=== PATIENT | male | born 1960 | race Caucasian/White ===

== ENCOUNTER 2016-05-13 09:37 | Outpatient (CLI) ==
[2015-09-07 08:10] VITALS: BMI 23.0
[2016-05-13 10:14] LABS: ALBUMIN 3.5 g/dL (3.4-5.0); ALBUMIN/GLOBULIN RATIO 0.71; ANION GAP 14.2; BILIRUBIN,DIRECT 0.39 mg/dL (0.00-0.30); BILIRUBIN,TOTAL 0.65 mg/dL (0.00-1.20); BUN/CREATININE RATIO 6.94; CALCIUM 9.6 mg/dL (8.2-10.2); CREATININE 0.72 mg/dL (0.60-1.10); PHOSPHORUS 3.1 mg/dL (2.5-4.9); POTASSIUM 4.2 mmol/L (3.5-5.1); TOTAL PROTEIN 8.4 g/dL (6.4-8.2)
== END 2016-05-13 09:38 | disposition home or self-care (01) ==
LOC: LAB 09:37
PROVIDERS: ATTEND Pain Medicine Interventional Pain Medicine
DX: Z51.81 Encounter for therapeutic drug level monitoring (principal); Z79.891 Long term (current) use of opiate analgesic; F19.20 Other psychoactive substance dependence, uncomplicated
CPT/HCPCS: 36415; 80053; 82248; 84100

== ENCOUNTER 2016-05-30 10:28 | Outpatient (CLI) ==
[2015-09-07 08:10] VITALS: BMI 23.0
[2016-05-30 11:24] LABS: BASOPHILS # (AUTO) 0.1 K/uL (0-0.2); BASOPHILS % (AUTO) 1.5 % (0.0-3.0); EOSINOPHILS # (AUTO) 0.3 K/ul (0.0-0.7); EOSINOPHILS % (AUTO) 3.2 % (0.0-7.0); HEMATOCRIT 40.5 % (42.0-52.0); HEMOGLOBIN 14.2 g/dl (14.0-18.0); IMMATURE GRANULOCYTE % (AUTO) 0.4 % (0.0-5.0); LYMPHOCYTES # (AUTO) 2.6 K/uL (0.60-3.4); LYMPHOCYTES % (AUTO) 31.4 (10.0-50.0); MEAN CORPUSCULAR HEMOGLOBIN 34.3 pg (27.0-31.0); MEAN CORPUSCULAR HGB CONC 35.1 (31.8-35.4); MEAN CORPUSCULAR VOLUME 97.8 fl (80.0-94.0); MONOCYTES # (AUTO) 0.7 K/uL (0.4-2.0); MONOCYTES % (AUTO) 8.1 (0-10); NEUTROPHILS # (AUTO) 4.5 K/ul (2.0-6.9); NEUTROPHILS % (AUTO) 55.4; PLATELET COUNT 165 10^3/uL (140-440); RED BLOOD COUNT 4.14 10^6/ul (4.70-6.10); WHITE BLOOD COUNT 8.18 K/ul (4.2-10.2)
[2016-05-30 12:03] LABS: ALBUMIN 3.5 g/dL (3.4-5.0); ALBUMIN/GLOBULIN RATIO 0.71; ANION GAP 16.3; BILIRUBIN,TOTAL 0.9 mg/dL (0.00-1.20); BUN/CREATININE RATIO 5.26; CALCIUM 9.3 mg/dL (8.2-10.2); CHOL/HDL RATIO 2.7 (4.5-6.4); CREATININE 0.76 mg/dL (0.60-1.10); POTASSIUM 4.3 mmol/L (3.5-5.1); TOTAL PROTEIN 8.4 g/dL (6.4-8.2)
== END 2016-05-30 10:29 | disposition home or self-care (01) ==
LOC: LAB 10:28
PROVIDERS: ATTEND Nurse Practitioner Family
DX: E78.5 Hyperlipidemia, unspecified (principal); F10.10 Alcohol abuse, uncomplicated; I10 Essential (primary) hypertension; Z12.5 Encounter for screening for malignant neoplasm of prostate
CPT/HCPCS: 36415; 80053; 80061; 82306; 84443; 85025

== ENCOUNTER 2016-09-19 11:48 | Outpatient (CLI) ==
[2015-09-07 08:10] VITALS: BMI 23.0
[2016-09-19 13:07] LABS: BASOPHILS # (AUTO) 0.1 K/uL (0-0.2); EOSINOPHILS # (AUTO) 0.1 K/ul (0.0-0.7); EOSINOPHILS % (AUTO) 1.3 % (0.0-7.0); HEMATOCRIT 38.8 % (42.0-52.0); HEMOGLOBIN 13.7 g/dl (14.0-18.0); IMMATURE GRANULOCYTE % (AUTO) 0.4 % (0.0-5.0); LYMPHOCYTES # (AUTO) 1.1 K/uL (0.60-3.4); LYMPHOCYTES % (AUTO) 16.4 (10.0-50.0); MEAN CORPUSCULAR HEMOGLOBIN 34.5 pg (27.0-31.0); MEAN CORPUSCULAR HGB CONC 35.3 (31.8-35.4); MEAN CORPUSCULAR VOLUME 97.7 fl (80.0-94.0); MONOCYTES # (AUTO) 1.1 K/uL (0.4-2.0); MONOCYTES % (AUTO) 16.3 (0-10); NEUTROPHILS # (AUTO) 4.4 K/ul (2.0-6.9); NEUTROPHILS % (AUTO) 64.6; PLATELET COUNT 158 10^3/uL (140-440); RED BLOOD COUNT 3.97 10^6/ul (4.70-6.10); WHITE BLOOD COUNT 6.88 K/ul (4.2-10.2)
[2016-09-19 13:21] LABS: ALBUMIN 3.9 g/dL (3.4-5.0); ALBUMIN/GLOBULIN RATIO 0.81; ANION GAP 17.6; BILIRUBIN,TOTAL 0.79 mg/dL (0.00-1.20); BUN/CREATININE RATIO 6.94; CHOL/HDL RATIO 2.4 (4.5-6.4); CREATININE 0.72 mg/dL (0.60-1.10); POTASSIUM 4.6 mmol/L (3.5-5.1); TOTAL PROTEIN 8.7 g/dL (6.4-8.2)
== END 2016-09-19 11:49 | disposition home or self-care (01) ==
LOC: LAB 11:48
PROVIDERS: ATTEND Nurse Practitioner Family
DX: E78.5 Hyperlipidemia, unspecified (principal); I10 Essential (primary) hypertension; Z11.59 Encounter for screening for other viral diseases
CPT/HCPCS: 36415; 80053; 80061; 80074; 85025

== ENCOUNTER 2016-09-24 16:37 | Outpatient (CLI) ==
[2015-09-07 08:10] VITALS: BMI 23.0
[2016-09-24 18:03] LABS: FERRITIN 524.85 ng/mL (21.81-274.66)
== END 2016-09-24 16:38 | disposition home or self-care (01) ==
LOC: LAB 16:37
PROVIDERS: ATTEND Nurse Practitioner Family
DX: E78.5 Hyperlipidemia, unspecified (principal); D64.9 Anemia, unspecified; F10.10 Alcohol abuse, uncomplicated; I10 Essential (primary) hypertension
CPT/HCPCS: 36415; 82607; 82728; 83540; 83550; 84466

== ENCOUNTER → 2016-10-07 | Outpatient (POV) ==
[2015-09-07 08:10] VITALS: BMI 23.0
== END ==
LOC: OUTPT 00:01
PROVIDERS: ATTEND Otolaryngology
DX: H93.13 Tinnitus, bilateral (principal)
CPT/HCPCS: 92557; 92567

== ENCOUNTER 2016-10-09 08:20 | Day surgery (SDC) ==
[2015-09-07 08:10] VITALS: BMI 23.0
[2016-10-09] MEDS ORDERED: LIDOCAINE 1%-EPI 1:100,000 10 ML (SURGERY) INJ ONE (10:17)
[2016-10-09] MEDS ORDERED: NEOSPORIN OINT 0.9 GM PACKET TP ONE (10:35)
[2016-10-09 11:22] VITALS: BP 126/69; TEMP 98.5
--- NOTE | 2016-10-14 10:54 | OP ---
DATE OF OPERATION: 10/09/16 65 year old male was brought to the operating room for excision of lesion of the posterior of the left arm. The lesion began as an abrasion against a door. It had not healed well. He was seen on consultation. I felt that the problem would probably not heal and probably excise for microscopic diagnosis. The patient was agreeable and he was advised about the possibility of infection and wound dehiscences and also advised that if there is any malignancy that it would require further surgery and if the surgery is extensive that I would not be able to perform the procedure for him and he will be referred to another facility. PREOPERATIVE DIAGNOSIS: SKIN LESION MID FOREARM, LEFT OPERATION: TRANSVERSE ELLIPTICAL EXCISION POSTOPERATIVE DIAGNOSIS: SAME. PROCEDURE: The patient in supine posture was then prepped and draped for surgery. The wound was measured. The area was then anesthetized with 1% Xylocaine. A transverse elliptical incision was made and this was dissected sharply until it was completely removed. Pressure was applied to the wound after removal of the lesion. The edges were then approximated using a 5-0 Vicryl and 5-0 Prolene. Neosporin ointment, plus dressing was applied. The patient tolerated the procedure well and was instructed to see me in one week and before if he has any problems. He was also instructed to elevate his arm above his head or his heart for the next three days. He was further instructed to see me if he has any problems or concerns. TAWANA
== END 2016-10-09 11:32 | disposition home or self-care (01) ==
LOC: SURG 08:20
PROVIDERS: ATTEND General Practice
DX: L72.0 Epidermal cyst (principal); L28.0 Lichen simplex chronicus; S50.812A Abrasion of left forearm, initial encounter; W22.8XXA Striking against or struck by other objects, initial encounter
CPT/HCPCS: 11403

== ENCOUNTER 2017-07-27 14:53 | Outpatient (CLI) ==
[2015-09-07 08:10] VITALS: BMI 23.0
== END 2017-07-27 14:54 | disposition home or self-care (01) ==
LOC: RHC-LAB 14:53
PROVIDERS: ATTEND Emergency Medicine
DX: L30.9 Dermatitis, unspecified (principal); F10.10 Alcohol abuse, uncomplicated; E78.5 Hyperlipidemia, unspecified; I10 Essential (primary) hypertension
CPT/HCPCS: 36415; 80053; 82140; 85025; 85610

== ENCOUNTER 2017-08-03 11:29 | Outpatient (CLI) ==
[2015-09-07 08:10] VITALS: BMI 23.0
== END 2017-08-03 11:30 | disposition home or self-care (01) ==
LOC: LAB 11:29
PROVIDERS: ATTEND Emergency Medicine
DX: F10.10 Alcohol abuse, uncomplicated (principal)
CPT/HCPCS: 36415; 82140

== ENCOUNTER 2017-08-07 08:21 | Outpatient (CLI) ==
[2015-09-07 08:10] VITALS: BMI 23.0
--- NOTE | 2017-08-07 09:39 | US ---
Exam: Lorenzo-scale and color ultrasonographic evaluation of the abdomen. Limited abdominal ultrasound Comparison: 07/20/2015. Reason for exam: Alcohol abuse. FINDINGS: The liver measures approximately 16.1 cm in length with a fatty appearing echotexture. There is no obvious ductal dilatation or perihepatic free fluid although evaluation is limited by ove rlying bowel gas. There is normal antegrade portal venous flow. The gallbladder wall measures 0.24 cm which is within normal limits. No intraluminal sludge, stone o r polyp is seen. The common bile duct measures 0.46 cm which is within normal limits. No evidence of intraluminal sto ne or polyp is seen. The pancreas was not well seen secondary to overlying bowel gas. The right kidney measures approximately 10.3 x 4.9 x 4.0 cm without obvious hydronephrosis and nephro lithiasis. Impression: Similar appearing hepatic steatosis. No acute ultrasonographic imaging findings are seen in the righ t upper quadrant
== END 2017-08-07 08:22 | disposition home or self-care (01) ==
LOC: RAD 08:21
PROVIDERS: ATTEND Emergency Medicine
DX: F10.10 Alcohol abuse, uncomplicated (principal); R74.8 Abnormal levels of other serum enzymes

== ENCOUNTER 2017-08-12 08:17 | Observation (INO) ==
--- NOTE | 2017-08-12 08:40 | ED.PDOC ---
General ED Provider: Dr. VENUS TOLENTINO Chief Complaint: Allergic Reaction Stated Complaint: allergic reaction Time Seen by Physician: 08:20 ( no shortness of breath) Mode of Arrival: Walk-In Information Source: Patient Exam Limitations: No limitations [facility] Nursing and Triage Documentation Reviewed and Agree: Yes Reviewed sepsis parameters & appropriate labs ordered?: Yes System Inflammatory Response Syndrome: Not Applicable Sepsis Protocol: For patient's 13 years and over: Temp is 96.8 and below OR 101 and greater Pulse >90 BPM Resp >20/minute Acutely Altered Mental Status Are patient's symptoms suggestive of a new infection, such as: -Pneumonia -Skin, Soft Tissue -Endocarditis -UTI -Bone, Joint Infection -Implantable Device -Acute Abdominal Infection -Wound Infection -Meningitis -Blood Stream Catheter Infection -Unknown System Inflammatory Response Syndrome: Not Applicable EENT Complaint Exam - Dental/Oral Complaint/Exam Mechanism of Injury: No known trauma Onset/Duration: 1 day Symptoms Are: Still present Initial Severity: Moderate Current Severity: Moderate Aggravating: Reports: None Alleviating: Reports: None Associated Signs and Symptoms: Reports: Swelling (upper lower lips and hand ) Cardiac Risk Factors: Reports: Hypertension (hisACEI DOSE WAS INCREASED ) Dental/Oral Surgical History: Reports: None Facial Swelling Present: Yes (CAN NOT OPEN MOUTH FULLY) Bleeding Present: No Oropharynx Findings: Absent: Clots, Active bleeding Septal Hematoma: No Foreign Body Present: No Dysphagia Present: No Drooling Present: No Asymmetrical Tonsillar Swelling Present: No Uvula Midline: No (UNABLE SEE ) Lyla-tonsillar Fluctuence: No Trismus Present: No Palatal Petechiae Present: No Scarlatinaform Rash Present: No Differential Diagnoses: Other (ANGIOEDEMA) Review of Systems - Review Of Systems Constitutional: Reports: No symptoms Eyes: Reports: No symptoms Ears, Nose, Mouth, Throat: Reports: Mouth swelling Respiratory: Reports: No symptoms Cardiac: Reports: No symptoms GI: Reports: No symptoms : Reports: No symptoms Musculoskeletal: Reports: No symptoms Skin: Reports: No symptoms Neurological: Reports: No symptoms Endocrine: Reports: No symptoms Hematologic/Lymphatic: Reports: No symptoms All Other Systems: Reviewed and Negative Past Medical History - Past Medical History Previously Healthy: Yes Endocrine: Reports: None Cardiovascular: Reports: None Respiratory: Reports: COPD, Asthma Hematological: Reports: None Gastrointestinal: Reports: None Genitourinary: Reports: None Neuro/Psych: Reports: Anxiety, Depression Musculoskeletal: Reports: Arthritis Cancer: Reports: None - Surgical History General Surgical History: Reports: None - Family History Family History: Reports: Unknown - Social History Smoking Status: Never smoker Hx Substance Use: No Alcohol Screening: Occasionally Physical Exam - Physical Exam Appearance: Well-appearing, No pain distress, Well-nourished Eyes: MARIO, EOMI, Conjunctiva clear ENT: Oropharynx normal (BUT DUE TO EDEMA CAN NOT OPEN MOTH FULLY SEE PHOTOS) Respiratory: Airway patent, Breath sounds clear, Breath sounds equal, Respirations nonlabored Cardiovascular: RRR, Pulses normal, No rub, No murmur GI/: Soft, Nontender, No masses, Bowel sounds normal, No Organomegaly Musculoskeletal: Normal strength, ROM intact, No edema, No calf tenderness Skin: Warm, Dry, Normal color Neurological: Sensation intact, Motor intact, Reflexes intact, Cranial nerves intact, Alert, Oriented Psychiatric: Affect appropriate, Mood appropriate Physician Notification - Case Discussed Physician Notified: PMD Time of Notification: 08:41 Critical Care Note - Critical Care Note Total Time (mins): 0 Course - Course Vital Signs: Temp Pulse Resp BP Pulse Ox 08/12/17 08:18 98.5 F 96 H 20 149/94 H 95 Departure - Departure Time of Disposition: 08:42 Disposition: PLACED OBSERVATION Discharge Problem: Angio-edema Qualifiers: Encounter type: initial encounter Qualified Code(s): T78.3XXA - Angioneurotic edema, initial encounter Instructions: Angioedema (ED) Condition: Good Pt referred to PMD for follow-up: Yes IPMP verified?: No Additional Instructions: Please call your Family Physician as soon as possible to schedule a follow-up appointment. Allergies/Adverse Reactions: Allergies tizanidine HCl [From Zanaflex] Allergy (Severe, Verified 08/12/17 08:24) dizzy,saw black circles shellfish derived Allergy (Intermediate, Verified 08/12/17 08:24) [place] Shellfish codeine Adverse Reaction (Verified 08/12/17 08:24) mold Allergy (Severe, Uncoded 09/07/15 08:14) sneeze , prboblems with asthma dust Allergy (Mild, Uncoded 09/07/15 08:14) sneeze, increases asthma attacks mildew Allergy (Mild, Uncoded 09/07/15 08:14) sneeze, asthma trees Allergy (Mild, Uncoded 09/07/15 08:14) sneeze, asthma Home Medications: Ambulatory Orders Oxycodone-Acetaminophen 5-325 [Percocet 5-325] 1 each PO TID 05/30/16 Methylphenidate HCl [Ritalin] 10 mg PO BID 10/09/16 Disposition Discussed With: Patient
[2017-08-12] MEDS ORDERED: BENADRYL PO STA (08:43)
[2017-08-12] MEDS ORDERED: SOLU-MEDROL 125 MG IVP STA (08:44)
[2017-08-12] MEDS ORDERED: LIBRIUM PO PRN (08:51)
[2017-08-12] MEDS ORDERED: SODIUM CHLORIDE 1,000 ML IV SCH (09:00)
[2017-08-12] MEDS ORDERED: INFUVITE ADULT IV ONE ×2 (10:44→23:11)
[2017-08-12] MEDS: THIAMINE IVP SCH (10:53)
[2017-08-12] MEDS: INFUVITE ADULT 10 ML in SODIUM CHLORIDE 1,000 ML IV SCH ×2 (10:53→23:18)
[2017-08-12 11:26] VITALS: BMI 23.4
[2017-08-12] MEDS: SOLU-MEDROL 125 MG IVP SCH ×2 (14:35→20:41)
[2017-08-12] MEDS ORDERED: PROAIR HFA IH PRN (15:44)
[2017-08-12] MEDS: SYMBICORT 160-4.5 MCG INHALER IH SCH (20:44)
[2017-08-12] MEDS: PERCOCET 5-325 PO SCH (20:44)
[2017-08-12] MEDS: NON-FORMULARY MEDICATION (Methylphenidate Hcl [Ritalin] 20 MG) PO SCH (20:45)
[2017-08-13] MEDS: SOLU-MEDROL 125 MG IVP SCH (04:10)
[2017-08-13] MEDS: SYMBICORT 160-4.5 MCG INHALER IH SCH ×2 (08:17→21:39)
[2017-08-13] MEDS: PERCOCET 5-325 PO SCH ×3 (08:17→21:39)
[2017-08-13] MEDS: SPIRIVA IH SCH (08:17)
[2017-08-13] MEDS: NON-FORMULARY MEDICATION (Methylphenidate Hcl [Ritalin] 20 MG) PO SCH ×2 (08:19→21:40)
[2017-08-13] MEDS: THIAMINE IVP SCH (08:52)
[2017-08-13] MEDS ORDERED: ZESTRIL PO SCH (09:00)
[2017-08-13] MEDS ORDERED: LACTULOSE 10 GM PO SCH (09:30)
[2017-08-13] MEDS: COZAAR PO SCH ×2 (09:41→21:39)
[2017-08-13] MEDS: MINOCYCLINE HCL PO SCH ×2 (09:42→21:39)
[2017-08-13] MEDS: PREDNISONE PO SCH ×2 (09:42→16:58)
[2017-08-13] MEDS ORDERED: LACTULOSE PO SCH (10:00)
[2017-08-13] MEDS ORDERED: INFUVITE ADULT IV ONE ×2 (11:13→23:48)
[2017-08-13] MEDS: INFUVITE ADULT 10 ML in SODIUM CHLORIDE 1,000 ML IV SCH (11:20)
[2017-08-14] MEDS: INFUVITE ADULT 10 ML in SODIUM CHLORIDE 1,000 ML IV SCH (00:23)
[2017-08-14 06:07] VITALS: BP 148/85; TEMP 97.5
[2017-08-14] MEDS: SPIRIVA IH SCH (08:40)
[2017-08-14] MEDS: MINOCYCLINE HCL PO SCH (08:40)
[2017-08-14] MEDS: SYMBICORT 160-4.5 MCG INHALER IH SCH (08:40)
[2017-08-14] MEDS: COZAAR PO SCH (08:41)
[2017-08-14] MEDS: NON-FORMULARY MEDICATION (Methylphenidate Hcl [Ritalin] 20 MG) PO SCH (08:41)
[2017-08-14] MEDS: PERCOCET 5-325 PO SCH (08:41)
[2017-08-14] MEDS: PREDNISONE PO SCH (08:41)
[2017-08-14] MEDS: THIAMINE IVP SCH (08:41)
--- NOTE | 2017-08-14 13:36 | HP ---
DATE OF SERVICE: 08/12/17 CHIEF COMPLAINT: Swelling of the lip and the face and rash in upper extremity. HISTORY OF PRESENT ILLNESS: This is a 56-year-old male with a history of COPD, hypertension, anxiety, and depression. He came to the emergency room with swelling to the lower lip, started one day before and then went to the upper lip and whole face swollen. Left hand also swollen. He came to the emergency room and was seen by Dr. Moore. The patient is on Lisinopril. The patient's claims that on the , blood pressure medication, Lisinopril was increased to 40 mg from 20 mg and ever since he started having this problem. At that time, Dr. Moore stopped the medication and gave a dose of Benadryl and Solumedrol 125 and admitted the patient to the hospital for possible Lisinopril induced reaction vs allergic reaction. REVIEW OF SYSTEMS: CONSTITUTIONAL: Face is swollen, left hand swollen. No fever, no chills. HEENT: Normal. ENDOCRINE: No weight gain; no weight loss. CVS: No chest pain. No PND, no orthopnea. No shortness of breath. No PND, no orthopnea. RESPIRATORY: No cough, no congestion. No hemoptysis. GI: No nausea, no vomiting. No abdominal pain. No melena. : No hematuria. No polyuria. MUSCULOSKELETAL: Aches and pains. PSYCHIATRIC: Anxiety and depression. No suicidal thoughts. No homicidal thoughts. SKIN: Upper extremity rash for which he has been treated with antibiotics and steroids as outpatient. PAST MEDICAL HISTORY: Hypertension Dyslipidemia COPD Bronchitis GERD PAST SURGICAL HISTORY: Hernia Cyst removed from the finger Colonoscopy PERSONAL HISTORY: Beer occasionally FAMILY HISTORY: Significant for breast cancer MEDICATIONS: (HOME) Percocet ProAir Ritalin Symbicort Spiriva Lactulose Lisinopril ALLERGIES: TIZANIDINE, SHELLFISH, CODEINE, MOLD AND DUST PHYSICAL EXAMINATION: V/S: BP 149/94, respiratory rate 20, heart rate 96, temperature 98.5. Saturation 95. HEENT: Face and upper lip is swollen. Lower lip swelling is not swollen. No scleral icterus. NECK: Supple. No JVD, no bruit. No lymphadenopathy. No thyromegaly. HEART: S1, S2 normal. No murmur. No cyanosis or clubbing. No ascites. LUNGS: Clear to auscultation. No rales or rhonchi. ABDOMEN: Soft, nontender. Bowel sounds are active. No CVA tenderness. No rigidity or guarding. EXTREMITIES: No pedal edema. No cyanosis or clubbing MUSCULOSKELETAL: Normal joints, no swelling. NEUROLOGIC: The patient is awake and alert. SKIN: Rash right upper extremity, pinkish in color, blanceable spreading upward on right upper extremity. LYMPHATIC: No lymph nodes palpable. LABS: White count 6.83, hemoglobin 15.3, hematocrit 41.1, platelet count 171. Sodium 125, potassium 4.4, chloride 92, bicarb 19, BUN 5, creatinine 0.67, glucose 99. AST 66. ASSESSMENT: 1. ALLERGIC MEDICATION REACTION WITH ANGIOEDEMA 2. HISTORY OF HYPERTENSION 3. DYSLIPIDEMIA 4. ANXIETY DISORDER 5. DEPRESSION 6. HYPONATREMIA PLAN: 1. Admit patient to observation 2. CBC, CMP today and daily 3. Cardiac enzymes and troponin 4. Continue Lactulose 5. Prednisone 10 mg p.o. b.i.d. 6. IV fluids with Vitamin B1 7. Librium 8. Continue home medications TIME SPENT: MORE THAN 75 minutes MTDD
--- NOTE | 2017-08-14 13:42 | PN ---
DATE OF SERVICE: 08/13/17 SUBJECTIVE: Facial swelling and lip swelling has resolved. He still has rash on right upper extremity. Lisinopril is still on hold. Ammonia levels were 41. Recent outpatient ultrasound of the liver is showing fatty liver. The patient does have history of alcohol use but says that he is just drinking one beer a day. REVIEW OF SYSTEMS: CONSTITUTIONAL: No fever, no chills. HEENT: Normal. ENDOCRINE: No weight gain, no weight loss. CVS: No angina symptoms. No CHF symptoms. No palpitations. No atypical chest pain for CAD. No shortness of breath. No PND, no orthopnea. RESPIRATORY: No cough, no hemoptysis. GI: No nausea, no vomiting. No abdominal pain. : No hematuria. No polyuria. MUSCULOSKELETAL: No joint swelling. PSYCHIATRIC: Not anxious. No depression. No suicidal thoughts. No homicidal thoughts. SKIN: Rash right upper extremity. PHYSICAL EXAMINATION: V/S: BP 147/84, respiratory rate 20, heart rate 85, temperature 97.7, saturation 94. HEENT: Normocephalic, atraumatic. Mucosa dry. NECK: Supple. No JVD, no carotid bruit. No lymphadenopathy. LUNGS: Clear to auscultation. No rales or rhonchi. HEART: S1, S2 normal. No S3. No murmur, gallop or regurgitation. ABDOMEN: Soft, nontender. Bowel sounds active. No rigidity. No rebound or guarding. No CVA tenderness. EXTREMITIES: No pedal edema. No clubbing or cyanosis MUSCULOSKELETAL: No joint swelling. NEUROLOGIC: Awake, alert, oriented times three. No focal deficit. LYMPHATIC: No lymph nodes palpable. SKIN: Rash right upper extremity, which is a papulovesicular rash clearing up. LABS: Sodium 132, potassium 3.9, chloride 98, bicarb 24, BUN 8, creatinine 0.68, glucose 152. White count 4.80, hemoglobin 13.1, hematocrit 37.4, platelet count 136. ASSESSMENT: 1. ANGIOEDEMA FROM THE LISINOPRIL, MOSTLY RESOLVED, ALLERGIC REACTION 2. HYPONATREMIA 3. DEPRESSION 4. ANXIETY PLAN: 1. Will start the patient on Losartan 50 mg p.o. daily 2. Continue Thiamine and IV fluids with MVI 3. Librium p.r.n. 4. Out of bed to chair 5. Activity as tolerated TIME SPENT: More than 35 minutes MTDD
--- NOTE | 2017-08-27 14:36 | DS ---
DATE OF SERVICE: 08/14/17 FINAL DIAGNOSIS: 1. ANGIOEDEMA FROM LISINOPRIL 2. DERMATITIS 3. HYPERTENSION 4. COPD 5. BRONCHITIS 6. FATTY LIVER 7. ALCOHOL USE DISCHARGE INSTRUCTIONS: 1. Discharge the patient home. 2. Abstain from the alcohol. MEDICATIONS AT DISCHARGE: Albuterol Symbicort Lactulose Zantac Spiriva Ritalin Oxycodone Cozaar NEW PRESCRIPTIONS: Minocycline 100 mg p.o. b.i.d. Prednisone 10 mg p.o. b.i.d. with meal Losartan (Cozaar) 50 mg p.o. daily DIET INSTRUCTIONS: Cardiac and Healthy ACTIVITY: As much as tolerated SMOKING: Advised to quit smoking DISEASE SPECIFIC EDUCATION: Medication reviewed and side effects Alcohol use and dependency Liver cirrhosis has been discussed, verbalized understanding HOSPITAL COURSE: This is a 56-year-old male who takes Lisinopril with recently increased dose to 40 mg. He was having some trouble but came to the emergency room because face and lips were swollen as well as left upper extremity. Dr. Moore saw the patient in the emergency room. White count was normal. BUN and creatinine was normal. Dose of Solu-Medrol was given and the patient was admitted to the hospital. Within two days with steroids, swelling was better from the mouth and face. The patient was started on Losartan. IV fluids with MVI given. Thiamine was given with the history of alcoholism. Librium was also given. Hospital care was uneventful. Ammonia level was 41. The patient did display his reluctancy to take Lactulose. Hemoglobin did drop from 15 to 11, assumed to have hemodilution. The patient was up and about walking. No new rash developed on the body. As the patient was feeling better and improved, the patient was discharged. TIME SPENT: MORE THAN 45 MINUTES MTDD
== END 2017-08-14 10:05 | disposition home or self-care (01) ==
LOC: ED 08:17 → MEDSURG A 08:44
PROVIDERS: ADMIT Emergency Medicine; ATTEND Emergency Medicine
DX: T78.3XXA Angioneurotic edema, initial encounter (principal); T46.4X5A Adverse effect of angiotensin-converting-enzyme inhibitors, initial encounter; L30.9 Dermatitis, unspecified; J40 Bronchitis, not specified as acute or chronic; I10 Essential (primary) hypertension; J44.9 Chronic obstructive pulmonary disease, unspecified; K76.0 Fatty (change of) liver, not elsewhere classified; E87.1 Hypo-osmolality and hyponatremia; F41.8 Other specified anxiety disorders; Z72.89 Other problems related to lifestyle; Z79.899 Other long term (current) drug therapy
CPT/HCPCS: 36415; 80053; 82140; 85007; 85025; 96361; 96374; 96375; 96376; 99284

== ENCOUNTER 2017-08-17 14:46 | Outpatient (CLI) | END 2017-08-17 14:47 | disposition home or self-care (01) | LOC: RHC-LAB 14:46 | PROVIDERS: ATTEND Emergency Medicine | DX: E78.5 Hyperlipidemia, unspecified (principal); I10 Essential (primary) hypertension; W57.XXXA Bitten or stung by nonvenomous insect and other nonvenomous arthropods, initial encounter | CPT/HCPCS: 36415; 85025; 86617 ==

== ENCOUNTER 2017-12-15 10:52 | Outpatient (CLI) | END 2017-12-15 10:53 | disposition home or self-care (01) | LOC: RHC-LAB 10:52 | PROVIDERS: ATTEND Emergency Medicine | DX: E78.5 Hyperlipidemia, unspecified (principal); I10 Essential (primary) hypertension | CPT/HCPCS: 36415; 80053; 80061; 84443; 85025 ==

== ENCOUNTER 2018-01-18 08:37 | Outpatient (CLI) | END 2018-01-18 08:38 | disposition home or self-care (01) | LOC: LAB 08:37 | PROVIDERS: ATTEND Nurse Practitioner Family | DX: Z01.818 Encounter for other preprocedural examination (principal) | CPT/HCPCS: 36415; 80053; 80061; 85025; 93005; 93010 ==

== ENCOUNTER 2018-01-19 09:34 | Outpatient (CLI) ==
--- NOTE | 2018-01-19 11:25 | DI ---
EXAM: Chest two views HISTORY: Wheezing COMPARISON: 02/28/2013 TECHNIQUE: Two views of the chest were performed FINDINGS: The lungs are clear. There is no pleural effusion or pneumothorax. The heart is normal i n size. The mediastinal contour is normal. There are no acute abnormalities of the bones. IMPRESSION: No acute cardiopulmonary process.
== END 2018-01-19 09:35 | disposition home or self-care (01) ==
LOC: RAD 09:34
PROVIDERS: ATTEND Nurse Practitioner Family
DX: R06.2 Wheezing (principal)

== ENCOUNTER 2018-01-22 09:01 | Outpatient (CLI) | END 2018-01-22 09:02 | disposition home or self-care (01) | LOC: LAB 09:01 | PROVIDERS: ATTEND Nurse Practitioner Family | DX: E87.1 Hypo-osmolality and hyponatremia (principal) | CPT/HCPCS: 36415; 83735; 84295 ==

== ENCOUNTER 2018-01-25 06:55 | Day surgery (SDC) ==
[2018-01-25] MEDS: CYCLOGYL 2% OPTH OP PRN ×3 (07:20→07:30)
[2018-01-25] MEDS: TETRACAINE 0.5% UNIT-DOSE OP PRN ×4 (07:20→08:58)
[2018-01-25] MEDS: VOLTAREN 0.1% OPTH SOL OP PRN ×3 (07:20→07:50)
[2018-01-25] MEDS: AK-DILATE 10% OPTH SOL OP PRN ×4 (07:20→07:30)
[2018-01-25 07:31] VITALS: TEMP 98.6
[2018-01-25] MEDS ORDERED: PRED FORTE 1% OPTH SOL OP PRN (07:47)
[2018-01-25] MEDS ORDERED: BSS WITH EPINEPHRINE OP ONE (07:47)
[2018-01-25] MEDS ORDERED: BETADINE OPTH PREP OP ONE (07:47)
[2018-01-25] MEDS ORDERED: OCUFLOX 0.3% OPTH SOL OP PRN (07:47)
[2018-01-25] MEDS ORDERED: DIAMOX PO STA (07:47)
[2018-01-25] MEDS ORDERED: LIDOCAINE 1% 20 ML MDV ID STA (07:47)
[2018-01-25] MEDS ORDERED: KETOROLAC 0.5% OPTH SOL OP PRN (07:47)
[2018-01-25] MEDS ORDERED: LIDOCAINE HCL 1% SDV INJ PRN (07:47)
[2018-01-25] MEDS ORDERED: VERSED ONE (08:50)
[2018-01-25] MEDS ORDERED: SUBLIMAZE ONE (08:50)
[2018-01-25] MEDS ORDERED: MIOSTAT INTRAOCULA ONE (09:05)
[2018-01-25] MEDS ORDERED: SOLU-CORTEF 250 MG INTRAOCULA PRN (12:19)
[2018-01-25] MEDS ORDERED: ISOPTO CARPINE OP PRN (12:19)
[2018-01-25] MEDS ORDERED: GENTAMICIN SULFATE INTRAOCULA PRN (12:19)
[2018-01-25] MEDS ORDERED: VANCOMYCIN INTRAOCULA PRN (12:19)
[2018-01-25 14:35] VITALS: BP 127/67
--- NOTE | 2018-01-26 13:08 | OP ---
PREOPERATIVE DIAGNOSIS: ADVANCED CATARACT, NUCLEAR SCLEROTIC, POSTERIOR SUBSCAPULAR CATARACT, RIGHT EYE. POSTOPERATIVE DIAGNOSIS: SAME. OPERATION PHACOEMULSIFICATION ASPIRATION OF CATARACT RIGHT EYE. PLACEMENT OF POSTERIOR CHAMBER LENS. PHACO TIME 31.4 SECONDS AT 4.0% POWER. LENS MODEL ANTONY [id number]. DIOPTER +22.0D. TECHNIQUE: CLEAR CORNEA. ANESTHESIA: TOPICAL ANESTHESIA W/ANESTHESIA MONITORING. OPERATIVE REPORT: Topical anesthesia consisting of Tetracaine was applied to the cornea and Xylocaine Methyl Paraben free of MFP was injected intracamerally into the anterior chamber. The patient was then brought into the operating room , prepped and draped in the usual ophthalmic manner. A lid speculum was placed and the operating microscope was used. A paracentesis was made at the 3 o' clock position. A clear corneal incision was made just out to the limbus. The anterior chamber was entered just inside the clear cornea. Viscoelastic was injected into the anterior chamber. A capsulotomy was performed with a bent # 27 gauge needle. Phacoemulsification was then performed in the posterior chamber. After completion of the phacoemulsification, residual cortical material was aspirated with the irrigation-aspiration system. The posterior capsule was polished. Viscoelastic was injected into the anterior and posterior chambers to inflate the capsular bag. Lens were placed via an Unfolder system and stabilized in the bag. Viscoelastic was removed from the anterior chamber. The wound was checked for any leakage. The four sponges were removed from the fornix. Topical antibiotic steroid and nonsteroidal drops were also applied to the cornea. A James shield was applied. The patient left the operating room in good condition without any complications. INTRAOPERATIVE MEDICATIONS: Xylocaine Methyl Paraben Free MPF ADDENDUM: During IOL implantation and centration, posterior capsule rent occurred. No vitreous was noted. Remaining viscoelastic was removed with [place]. Miostat was injected into the anterior chamber to constrict pupil. The lens remained stable and centered in the bag. Subconjunctival injections, Vancomycin, Gentamicin and Solu-Cortef were given. The eye was patched and shield was placed. [facility]
== END 2018-01-25 10:00 | disposition home or self-care (01) ==
LOC: SURG 06:55
PROVIDERS: ATTEND Ophthalmology
DX: H25.13 Age-related nuclear cataract, bilateral (principal); H25.043 Posterior subcapsular polar age-related cataract, bilateral

== ENCOUNTER 2018-02-02 12:10 | Outpatient (CLI) | END 2018-02-02 12:11 | disposition home or self-care (01) | LOC: RHC-LAB 12:10 | PROVIDERS: ATTEND Nurse Practitioner Family | DX: E87.1 Hypo-osmolality and hyponatremia (principal) | CPT/HCPCS: 36415; 84295 ==

== ENCOUNTER 2018-05-19 09:14 | Outpatient (CLI) ==
--- NOTE | 2018-05-19 10:27 | DI ---
Exam: Three views of the lumbar spine. Comparison: CT performed 08/07/2014. Reason for exam: Back pain. FINDINGS: No acute fracture or listhesis. Similar appearing degenerative findings in the lumbosacra l spine at L5-S1 with sclerotic change. There is relative preservation of the lumbar lordotic curve. Impression: 1. Degenerative findings with intervertebral body disc space height narrowing and sclerotic change o f L5-S1. 2. Otherwise no acute fracture or listhesis.
--- NOTE | 2018-05-19 16:25 | MRI ---
EXAM: MRI lumbar spine without IV contrast. DATE: 19 May 2018. HISTORY: Lumbar back pain. TECHNIQUE: Sagittal and axial T1W and T2W sequences of the lumbar spine along with sagittal IR and c oronal T2W sequences were obtained using 1.2 Adri magnet. No IV contrast. COMPARISON: LS spine series [address] L-spine 07 August 2014. MRI L-spine 10/24/2013. FINDINGS: There are five [id number] lumbar vertebra. Mild leftward curvature of the lower thor acic and lumbar spine is similar to October 2013. A 2 mm retrolisthesis of L4 relative to L5 and 2.8 mm anterolisthesis of L5 relative to S1 are observed. No other subluxation, acute fracture, osseous ma lignancy, or pars interarticularis defect is demonstrated. Small/moderate anterolateral osteophytes are present at L3-4 and L5-S1. Lumbar vertebra are normal in height. Thoracolumbar bone marrow sign al is overall normal, although there are patchy areas of fatty infiltration. Disc desiccation is maco arent at L3-4, L4-5, and L5-S1. Mild/moderate disc space narrowing is detected at L5-S1. Remaining intervertebral discs are normal in height. No acute sacral fracture or stress reaction is identified . Patchy areas of T2W/T1W hyperintensity within the sacral ala and iliac bones are consistent with f atty infiltration. SI joints are unremarkable. Conus medullaris terminates at L1-2. No cord edema, syrinx, myelomalacia, or neoplasm is revealed. T2W/T1W bright, 101.5 mm diameter x 7 cm length focu s at the filum terminalis is benign. No tethered cord is demonstrated. No retroperitoneal lymphadenopathy, paraspinal mass, or aortic aneurysm is detected. Atherosclerotic plaques are scattered in the aortic wall. Psoas muscles are normal. Posterior paraspinal muscles a re symmetric bilaterally. Visible portion the right lobe liver measures greater than 15.5 cm in bahman th, without distinct focal mass. Spleen, adrenal glands, and kidneys reveal no abnormality. Segmental analysis: T11-12: Normal. T12-L1: Normal. L1-2: Normal. L2-3: Minor left foraminal disc bulge causes minor left inferior foraminal encroachment. No central canal stenosis. T2W bright, T1W dark, 3.3 mm focus in the right facet is likely a benign geode/cyst . L3-4: Small concentric disc bulge, superimposed left foraminal disc protrusion (3.1 mm AP x 11 mm tr ansverse) and mild facet arthropathy cause triangulation of the canal, mild right foraminal stenosis, and moderate left foraminal stenosis. Left L3 nerve root contacts the disc bulge/protrusion near th e lateral aspect of the foramen. L4-5: Minor anterolisthesis of L4, small concentric disc bulge, mild facet arthropathy, and mild lig amentum flavum hypertrophy cause triangulation of the canal, moderate/marked right foraminal stenosis and moderate left foraminal stenosis. Small right facet effusions is noted. L5-S1: Small concentric disc bulge and minor facet arthropathy cause mild/moderate right and moderat e left foraminal stenoses. Each L5 nerve root contacts the disc bulge near the lateral aspect of the foramen. No central canal stenosis. IMPRESSIONS: 1. Lumbar spine mild spondylosis, mild levoscoliosis, mild facet arthropathy, and multilevel DDD. 2. Multilevel lumbar foraminal stenoses. Left L3 and both L5 nerve roots contact disc bulges near t he foramen, and may be sources for pain/radiculopathy 3. Triangulation of the canal at L3-4 and L4-5. 4. Fatty marrow signal - consider osteopenia. 5. Fatty filum terminalis - benign normal variation. 6. Mild abdominal aortic atherosclerosis. 7. Mild hepatomegaly - etiology uncertain.
== END 2018-05-19 09:15 | disposition home or self-care (01) ==
LOC: RAD 09:14
PROVIDERS: ATTEND Pain Medicine Interventional Pain Medicine
DX: M51.16 Intervertebral disc disorders with radiculopathy, lumbar region (principal); M51.17 Intervertebral disc disorders with radiculopathy, lumbosacral region; M48.061 Spinal stenosis, lumbar region without neurogenic claudication; M48.07 Spinal stenosis, lumbosacral region; M47.816 Spondylosis without myelopathy or radiculopathy, lumbar region; M47.817 Spondylosis without myelopathy or radiculopathy, lumbosacral region

== ENCOUNTER 2018-09-09 10:53 | Outpatient (CLI) | END 2018-09-09 10:54 | disposition home or self-care (01) | LOC: LAB 10:53 | PROVIDERS: ATTEND Pain Medicine Interventional Pain Medicine | DX: D64.9 Anemia, unspecified (principal); E78.5 Hyperlipidemia, unspecified; Z12.5 Encounter for screening for malignant neoplasm of prostate; Z79.1 Long term (current) use of non-steroidal anti-inflammatories (NSAID); Z79.891 Long term (current) use of opiate analgesic | CPT/HCPCS: 36415; 80053; 80061; 82248; 84100; 85025 ==